=== PATIENT | female | born 1980 | race Caucasian/White ===

== ENCOUNTER 2019-02-28 14:52 | Outpatient (CLI) | payer BC ==
--- NOTE | 2019-02-28 15:31 | ULT ---
Exam: Bilateral renal ultrasound HISTORY: Microscopic hematuria COMPARISON: None FINDINGS: Right kidney: Normal cortical echotexture. No hydronephrosis. Right kidney measurements: 10.7 x 4.4 x 4.2 cm. Left kidney: Normal cortical echotexture. No hydronephrosis Left kidney measurements 11.5 x 4.5 x 5.6 cm. Urinary bladder: Normal mucosa. 184 mL bladder volume IMPRESSION: No hydronephrosis.
== END 2019-02-28 14:53 | disposition home or self-care (01) ==
LOC: SCSULT 14:52
PROVIDERS: ATTEND Urology
DX: R31.29 Other microscopic hematuria (principal)
CPT/HCPCS: 76770